=== PATIENT | male | born 1995 | race Caucasian/White ===

== ENCOUNTER 2022-12-27 20:28 | Emergency (ER) | payer OTHER ==
[~2022-12-27] VITALS: Ht 175.3 cm; Wt 80.7 kg
[2022-12-27] MEDS ORDERED: KETOROLAC TROMETHAMINE INJ 30 MG/ML VIAL ONE (21:38)
[2022-12-27] MEDS ORDERED: KETOROLAC TROMETHAMINE INJ 30 MG/ML VIAL IM ONE (22:00)
[2022-12-27] MEDS ORDERED: HYDR-4279 PO (22:18)
[2022-12-27] MEDS ORDERED: IBUP-1953 PO (22:18)
[2022-12-27] MEDS ORDERED: CLIN150C16 PO (22:18)
--- NOTE | 2022-12-27 22:22 | NUR ---
Patient discharged to home in stable condition. Written and verbal after care instructions given. Patient verbalizes understanding of instruction.
[2022-12-27 22:23] VITALS: BP 123/80
== END 2022-12-27 22:24 | disposition home or self-care (01) ==
LOC: ER 20:32
DX: K04.7 Periapical abscess without sinus (principal); Z88.0 Allergy status to penicillin; Z79.899 Other long term (current) drug therapy
CPT/HCPCS: 99283; 96372; J1885